=== PATIENT | female | born 1960 | race Caucasian/White ===

== ENCOUNTER 2017-04-24 23:00 | Observation (INO) | payer SELFPAY ==
[~2017-04-24] VITALS: Ht 165.1 cm; Wt 77.6 kg
[2017-04-24] MEDS ORDERED: GLUCAGON,HUMAN RECOMBINANT 1 MG/ML VIAL. IV ONE (23:55)
[2017-04-25] MEDS ORDERED: GLUCAGON,HUMAN RECOMBINANT 1 MG/ML VIAL. IV ONE (01:30)
[2017-04-25] MEDS ORDERED: IV NORMAL SALINE 1000ML BAG 1,000 ML IV ONE (01:30)
[2017-04-25 02:00] VITALS: BP 139/84
[2017-04-25] MEDS ORDERED: ONDANSETRON PF 4 MG/2 ML VIAL. IV PRN (03:00)
[2017-04-25] MEDS ORDERED: LISI1TAB3 PO (03:17)
[2017-04-25] MEDS ORDERED: DEXT5TAB27 PO (03:17)
[2017-04-25] MEDS ORDERED: ALPR0.5T PO (03:17)
[2017-04-25] MEDS: IV NORMAL SALINE 1000ML BAG 1,000 ML IV SCH ×2 (04:28→15:10)
[2017-04-25 05:02] VITALS: BP 139/84
--- NOTE | 2017-04-25 05:04 | PHYS DOC ---
Past Medical History Past Medical History: Hypertension Past Surgical History: Hysterectomy, Other Additional Past Surgical Histo: BLADDER SLING Alcohol Use: Occasionally Drug Use: None Adult General Chief Complaint Chief Complaint: FOREIGN BODY HPI HPI Patient is a 56 year old female who presents with esophageal food impaction. The patient states at 1200 today she ate roast beef & a piece became lodged in her throat. She is spitting her secretions into a basin & unable to tolerate any oral intake. She denies pain. She denies fevers or shortness of breath. No previous history of similar symptoms. Review of Systems Review of Systems Constitutional: Denies fever or chills HENT: Denies nasal congestion or sore throat Respiratory: Denies cough or shortness of breath Cardiovascular: Denies chest pain or edema GI: Denies abdominal pain, nausea, vomiting, or diarrhea, reports esophageal obstruction Musculoskeletal: Denies back pain Integument: Denies rash or skin lesions Neurologic: Denies headache Current Medications Current Medications Current Medications Medications (Trade) Dose Ordered Sig/Tammy Start Time Stop Time Status Last Admin Dose Admin Diazepam (Valium) 5 mg 1X ONCE 04/24/17 23:55 04/24/17 23:56 DC 04/25/17 00:14 5 MG Glucagon (Glucagen) 1 mg 1X ONCE 04/24/17 23:55 04/24/17 23:56 DC 04/25/17 00:14 1 MG Allergies Allergies Allergies Coded Allergies Type Severity Reaction Last Updated Verified No Known Drug Allergies 04/24/17 No Physical Exam Physical Exam Constitutional: Well developed, well nourished, no acute distress, non-toxic appearance. spitting secretions into a basin. HENT: Normocephalic, atraumatic, bilateral external ears normal, oropharynx moist, nose normal. airway patent, no foreign body in oropharynx. Eyes: conjunctiva normal, no discharge. Neck: supple, no stridor. Cardiovascular: RRR, no murmurs, no edema. Lungs & Thorax: LCTAB, no wheezing, no respiratory distress. Abdomen: soft, nontender, nondistended. Skin: Warm, dry, no erythema, no rash. Back: No tenderness. Extremities: No tenderness, no edema. Neurologic: Alert and oriented X 3, no focal deficits noted. Psychologic: Affect normal, judgement normal, mood normal. Current Patient Data Vital Signs Vital Signs Date Time Temp Pulse Resp B/P (MAP) Pulse Ox O2 Delivery O2 Flow Rate FiO2 04/25/17 01:00 86 169/92 (117) 99 Room Air 04/24/17 23:30 98.0 20 98.0 EKG EKG [] Radiology/Procedures Radiology/Procedures [] Course & Med Decision Making Course & Med Decision Making Pertinent Labs and Imaging studies reviewed. (See chart for details) The patient presents with esophageal food impaction. Stable from a respiratory standpoint. Gave glucagon and Valium and attempted to have her drink EZ-gas. There was no improvement in her symptoms. She continued to spit clear secretions into a basin and immediately vomited any fluids that she tried to ingest. Discussed with Dr. Nesbitt who recommends admission to the hospital for endoscopy in the morning. Discussed with Dr. Perry who agrees to admit to observation status. The patient is admitted in stable condition. Dragon Disclaimer Dragon Disclaimer This electronic medical record was generated, in whole or in part, using a voice recognition dictation system. Departure Departure Impression: Primary Impression: Esophageal obstruction due to food impaction Disposition: ADMITTED INPATIENT Admitting Physician: Burak Perry Condition: STABLE BEV MONTGOMERY MD Apr 25, 2017 05:04
[2017-04-25 07:00] VITALS: BP 121/71
[2017-04-25 07:46] LABS: BASO # 0.1 x10^3/uL (0.0-0.2); BASO % 1 % (0-3); EOS % 3 % (0-3); HEMATOCRIT 41.6 % (36.0-47.0); LYMPH # 2.4 x10^3/uL (1.0-4.8); LYMPH % 27 % (24-48); MEAN CORPUSCULAR HEMOGLOBIN 33 pg (25-35); MEAN CORPUSCULAR HGB CONC 34 g/dL (31-37); MEAN CORPUSCULAR VOLUME 97 fL (79-100); MONO % 7 % (0-9); NEUT % 63 % (31-73); PLATELET COUNT 255 x10^3/uL (140-400); RED BLOOD COUNT 4.28 x10^6/uL (3.50-5.40); RED CELL DISTRIBUTION WIDTH 13.1 % (11.5-14.5)
[2017-04-25 07:58] LABS: CALCIUM 8.6 mg/dL (8.5-10.1); CREATININE 0.7 mg/dL (0.6-1.0); GFR 86.9; POTASSIUM 3.4 mmol/L (3.5-5.1)
--- NOTE | 2017-04-25 08:42 | PDOC ---
Provider Note Provider Note [id number] ARELY MOSES MD Apr 25, 2017 08:42
--- NOTE | 2017-04-25 08:58 | PDOC2 ---
GI CONSULT Reason For Consult: Impacted food bolus HPI: HPI: 56 y/o female who had sensation of food (beef historically) sticking in esophagus yesterday ~noon. Procrastinated most of the day, finally presenting to ER last evening. Medical treatments failed. Denies prior dysphagia or other than occasional heartburn. No PUD, GB, liver or pancreatic history. Smokes. Occasional alcohol use. Occasional Advil use. No diarrhea, constipation, overt blood in stool or melena. Wt/appetite OK. Some retching and hypersalivation; better if remains NPO. GI family history positive for GB disease in father, otherwise negative. No prior endoscopy. PMH: PMH: HTN. S/p hysterectomy, bladder sling. FH: Family History: Other (No GI issues.) Social History: ALCOHOL: occassional Drugs: None ROS: GEN: Denies fevers, chills, sweats HEENT: Denies blurred vision, sore throat CV: Denies chest pain RESP: Denies shortness of air, cough GI: Per HPI : Denies hematuria, dysuria ENDO: Denies weight changes NEURO: Denies confusion, dizziness MSK: Denies weakness, joint pain/swelling SKIN: Denies jaundice, pruritus Vitals: Vitals: Vital Signs Date Time Temp Pulse Resp B/P (MAP) Pulse Ox O2 Delivery O2 Flow Rate FiO2 04/25/17 07:00 97.9 78 18 121/71 (88) 95 Room Air 97.9 Labs: Labs: Laboratory Tests Test 04/25/17 07:35 White Blood Count 9.0 x10^3/uL (4.0-11.0) Red Blood Count 4.28 x10^6/uL (3.50-5.40) Hemoglobin 14.0 g/dL (12.0-15.5) Hematocrit 41.6 % (36.0-47.0) Mean Corpuscular Volume 97 fL (79-100) Mean Corpuscular Hemoglobin 33 pg (25-35) Mean Corpuscular Hemoglobin Concent 34 g/dL (31-37) Red Cell Distribution Width 13.1 % (11.5-14.5) Platelet Count 255 x10^3/uL (140-400) Neutrophils (%) (Auto) 63 % (31-73) Lymphocytes (%) (Auto) 27 % (24-48) Monocytes (%) (Auto) 7 % (0-9) Eosinophils (%) (Auto) 3 % (0-3) Basophils (%) (Auto) 1 % (0-3) Neutrophils # (Auto) 5.6 x10^3uL (1.8-7.7) Lymphocytes # (Auto) 2.4 x10^3/uL (1.0-4.8) Monocytes # (Auto) 0.6 x10^3/uL (0.0-1.1) Eosinophils # (Auto) 0.3 x10^3/uL (0.0-0.7) Basophils # (Auto) 0.1 x10^3/uL (0.0-0.2) Sodium Level 143 mmol/L (136-145) Potassium Level 3.4 mmol/L (3.5-5.1) Chloride Level 109 mmol/L (98-107) Carbon Dioxide Level 27 mmol/L (21-32) Anion Gap 7 (6-14) Blood Urea Nitrogen 15 mg/dL (7-20) Creatinine 0.7 mg/dL (0.6-1.0) Estimated GFR (Cockcroft-Gault) 86.9 Glucose Level 90 mg/dL (70-99) Calcium Level 8.6 mg/dL (8.5-10.1) Labs OK. Allergies: Coded Allergies: No Known Drug Allergies (Unverified , 04/24/17) Medications: Current Medications Medications (Trade) Dose Ordered Sig/Tammy Route PRN Reason Start Time Stop Time Status Last Admin Dose Admin Glucagon (Glucagen) 1 mg 1X ONCE IV 04/24/17 23:55 04/24/17 23:56 DC 04/25/17 00:14 Diazepam (Valium) 5 mg 1X ONCE IV 04/24/17 23:55 04/24/17 23:56 DC 04/25/17 00:14 Sodium Chloride 1,000 ml @ 1,000 mls/hr 1X ONCE IV 04/25/17 01:30 04/25/17 02:29 DC 04/25/17 01:43 Glucagon (Glucagen) 1 mg 1X ONCE IV 04/25/17 01:30 04/25/17 01:31 DC 04/25/17 01:43 Ondansetron HCl (Zofran) 4 mg PRN Q8HRS PRN IV NAUSEA/VOMITING 04/25/17 03:00 04/26/17 02:59 04/25/17 04:52 Sodium Chloride 1,000 ml @ 100 mls/hr Q10H IV 04/25/17 03:00 04/26/17 02:59 04/25/17 04:28 PE: GEN: NAD HEENT: Atraumatic, PERRLA LUNGS: CTAB HEART: RRR, no murmurs ABD: NABS, S/ND/NT, no masses EXTREMITY: No edema SKIN: No rashes, no jaundice NEURO/PSYCH: A & O 3 A/P: A/P: IMP: Impacted food bolus. REC: EGD this morning. Should consider screening colonoscopy at some point. --other rec's pending. Thanks. EASTON JOHNSON MD Apr 25, 2017 08:58
--- NOTE | 2017-04-25 09:22 | HP ---
ADMIT DATE: 04/25/2017 CHIEF COMPLAINT: Esophageal obstruction. HISTORY OF PRESENT ILLNESS: A 56-year-old white female has a history of ADD and hypertension and is otherwise medically well. Several hours earlier on the day of admission, she was eating roast beef and felt a piece be difficult to chew and then she swallowed. She was unable to and unable to swallow any food or liquids since that time. She came to the ER and was unable to tolerate liquids as well. She is admitted and n.p.o., awaiting for EGD and esophageal obstruction evaluation. PAST MEDICAL HISTORY: Hysterectomy is her only major surgery. MEDICATIONS: Adderall, lisinopril . ALLERGIES: No allergies are noted. No other serious medical problems. SOCIAL HISTORY: Nonsmoker, nondrinker, physically active, normally healthy, employed, . FAMILY HISTORY: Unremarkable. REVIEW OF SYSTEMS: No other complaints. She has never had any previous swallowing problems, esophageal ring dilations, acid reflux or ulcer disease. OBJECTIVE: ENT: All within normal limits. No oral secretions. NECK: No masses, nodes or thyroid enlargement or tenderness. LUNGS: Clear, without wheezing. CARDIOVASCULAR: Regular rate. No irregular beat or murmur. BREASTS: Not examined. ABDOMEN: Soft, benign and nontender. EXTREMITIES: Good pedal and radial pulses. No joint or skin lesions. NEUROLOGIC: Physiologic, alert, appropriate, responsive. GENITOURINARY AND RECTAL: Deferred. ASSESSMENT: Clinically, she has esophageal food obstruction. PLAN: Dr. Nesbitt plans to do EGD and impaction removal today. ARELY MOSES MD DR: RAÚL/radha JOB#: [id number] / [id number]
[2017-04-25] MEDS ORDERED: IV RINGERS,LACTATED 1000ML 1,000 ML IV SCH (09:27)
[2017-04-25] MEDS ORDERED: fentaNYL PF VIAL 100 MCG/2 ML VIAL IV PRN ×2 (09:30)
[2017-04-25] MEDS ORDERED: LIDOCAINE 1% 1 ML SYRINGE. ID PRN (09:30)
[2017-04-25] MEDS ORDERED: MIDAZOLAM HCL/PF 2 MG/2 ML VIAL. IV PRN (09:30)
[2017-04-25] MEDS ORDERED: LIDOCAINE 2% PF Vial for OR 5 ML VIAL. ONE (09:49)
[2017-04-25] MEDS ORDERED: PROPOFOL 20 ML IV ONE (09:49)
--- NOTE | 2017-04-25 10:08 | PDOC4 ---
PROCEDURE Procedure EGD Indication: Impacted food bolus. Meds: per anesthesia Findings: E--circumferential ulceration, not really much narrowing, at GE junction (40cm) . Suspect much of this from impacted bolus (now passed spontaneously). G--Normal D--Patchy erythema, bulb. Keysha. well. IMP: Impacted food bolus, resolved. Distal esophageal ulceration, unclearly from reflux and perhaps from impacted food. REC: PO PPI for at least 4 weeks. Should consider repeating EGD at some point and a screening colonoscopy. Could probably go home. EASTON JOHNSON MD Apr 25, 2017 10:08
[2017-04-25] MEDS ORDERED: PANTOPRAZOLE 40 MG TABLET.DR. PO SCH (11:00)
[2017-04-25 11:02] VITALS: BP 123/70
[2017-04-25 14:50] VITALS: BP 125/72
--- NOTE | 2017-04-27 12:15 | DS ---
DATE OF DISCHARGE: 04/25/2017 HOSPITAL SUMMARY: The patient is a 56-year-old white female who came in with subjective esophageal obstruction from roast beef bolus and was unable to swallow food or liquids. Dr. Nesbitt performed EGD with extraction of the food bolus and evaluation of the esophagus and she was comfortable to be discharged and followed as an outpatient. Laboratory studies were unremarkable. FINAL DIAGNOSIS: Esophageal obstruction secondary to food bolus, resolved. OPERATIONS AND PROCEDURES: EGD. COMPLICATIONS: None. CONSULTATIONS: Dr. Nesbitt. DISPOSITION: Home meds remain the same. Regular diet. Office followup with Dr. Nesbitt as needed and schedule with Dr. Burak Perry. BURAK PERRY MD DR: RAÚL/radha JOB#: [id number] / [id number]
== END 2017-04-25 17:24 | disposition home or self-care (01) ==
LOC: ER 23:00 → 5 SOUTH 04-25 01:10
PROVIDERS: ADMIT Family Medicine; ATTEND Family Medicine
DX: T18.128A Food in esophagus causing other injury, initial encounter (principal); F98.8 Other specified behavioral and emotional disorders with onset usually occurring in childhood and adolescence; I10 Essential (primary) hypertension; K22.10 Ulcer of esophagus without bleeding; K11.7 Disturbances of salivary secretion; X58.XXXA Exposure to other specified factors, initial encounter; Y93.89 Activity, other specified; Y92.89 Other specified places as the place of occurrence of the external cause; Y99.8 Other external cause status; Z90.710 Acquired absence of both cervix and uterus
CPT/HCPCS: 36415; 43247; 80048; 85027; 96374; 96375; 96376; 99285; G0378; J1610; J2001; J2405; J2704; J3360; J7030; G0379; J7120